=== PATIENT | female | born 1935 | race Caucasian/White ===

== ENCOUNTER 2016-11-21 08:08 | Emergency (ER) | payer OTHER ==
[2016-11-21] MEDS ORDERED: ASPIRIN 81 MG CHEWABLE CTB PO STA (08:20)
[2016-11-21] MEDS ORDERED: NITROGLYCERIN 0.4 MG TAB SL PRN (08:20)
[2016-11-21] MEDS ORDERED: SODIUM CHLORIDE 0.9% FLUSH 10 ML SOL IV PRN (08:20)
[2016-11-21 08:25] LABS: BASOPHILS % (AUTO) 1 % (0-3); EOSINOPHILS % (AUTO) 3 % (0-9); HEMATOCRIT 37 % (35-47); MEAN CORPUSCULAR HGB CONC 33.8 gm/dl (32.0-36.0); MEAN CORPUSCULAR VOLUME 89 fL (81-99); MONOCYTES % (AUTO) 5.2 % (0-12)
[2016-11-21 08:41] VITALS: TEMP 100
[2016-11-21 08:42] LABS: CALCIUM 8.6 mg/dl (8.5-10.1); GLOM FILT RATE 49 mL/min (>60); POTASSIUM 4.2 mMol/L (3.5-5.1); SODIUM 139 mMol/L (136-145)
[2016-11-21] MEDS ORDERED: IBUPROFEN 400 MG TAB PO ONE (09:18)
[2016-11-21] MEDS ORDERED: IBUPROFEN 400 MG TAB ONE (09:19)
[2016-11-21 10:18] VITALS: BP 143/62; PULSE 71; RESP 22; O2SAT 99
== END 2016-11-21 10:50 | DRG 313 ==
LOC: ED 08:08
DX: R07.89 Other chest pain (principal); R41.0 Disorientation, unspecified; W19.XXXA Unspecified fall, initial encounter
CPT/HCPCS: 36415; 71010; 80048; 82550; 84484; 85025; 85610; 85730; 93005; 99284